=== PATIENT | male | born 1980 | race Caucasian/White ===

== ENCOUNTER → 2018-07-14 | Outpatient (REF) | payer OTHER ==
[~2018-07-14] MED LIST: CLON1 PO; DOXY-179 PO; NO ROUTINE MEDS; OXYC5SOL14 PO
== END ==
LOC: ZZSENDIN 15:54
PROVIDERS: ATTEND Family Medicine
DX: R10.11 Right upper quadrant pain (principal)
CPT/HCPCS: 83690